=== PATIENT | female | born 1935 | race Caucasian/White ===

== ENCOUNTER 2017-03-02 09:21 | Emergency (ER) | payer OTHER, MEDICARE ==
[~2017-03-02] VITALS: Ht 154.9 cm; Wt 80.2 kg
[2017-03-02] MEDS ORDERED: METOPROLOL SUCC50 MG PO (09:46)
[2017-03-02] MEDS ORDERED: ALDACTONE25 MG PO (09:46)
[2017-03-02] MEDS ORDERED: HYDROCHLOROTHIA25 MG PO (09:47)
[2017-03-02] MEDS ORDERED: ARIMIDEX1 MG PO (09:47)
[2017-03-02] MEDS ORDERED: KLOR-CON SPRIN10 MEQ PO (09:48)
[2017-03-02 10:03] LABS: EOSINOPHIL (%) 0.9 % (0-5); EOSINOPHIL COUNT 0.1 K/uL (0-0.3); IMMATURE GRANULOCYTE (%) 0.4 % (0.0-0.7); IMMATURE GRANULOCYTE COUNT 0.1 K/uL; LYMPHOCYTE COUNT 1.8 K/uL (1.0-2.8); MCH 30.3 PG (29.0-34.0); MCHC 32.6 G/DL (30.0-36.0); MCV 92.9 FL (83-99); MEAN PLAT.VOLUME 10.7 uM^3 (9.5-12.4); MONOCYTE (%) 5.2 % (3-12); MONOCYTE COUNT 0.7 K/uL (0-0.8); NEUTROPHIL (%) 79.3 % (45-76); PLATELET COUNT 228 K/uL (156-360); RBC DIS.WIDTH-SD 44.1 % (39-53); RED BLOOD COUNT 3.66 M/uL (3.80-5.20); WHITE BLOOD COUNT 12.6 K/uL (4.1-10.2)
[2017-03-02 10:13] LABS: CHLORIDE 109 mEq/L (99-109); POTASSIUM 5.3 mEq/L (3.7-5.4); SODIUM 139 mEq/L (136-147)
[2017-03-02 10:14] LABS: GLUCOSE 167 mg/dL (70-99)
[2017-03-02 10:16] LABS: ANION GAP 10 MEQ/L (2-14)
[2017-03-02 10:18] LABS: GFR ESTIMATE (CALCULATED) 15 mL/min/
[2017-03-02 10:19] LABS: UREA NITROGEN (BUN) 52 mg/dL (9-23)
[2017-03-02 11:53] VITALS: BP 129/84
== END 2017-03-02 11:58 | disposition home or self-care (01) ==
LOC: EME 09:21
PROVIDERS: Emergency Medicine
DX: S00.03XA Contusion of scalp, initial encounter (principal); I12.9 Hypertensive chronic kidney disease with stage 1 through stage 4 chronic kidney disease, or unspecified chronic kidney disease; N18.4 Chronic kidney disease, stage 4 (severe); W01.0XXA Fall on same level from slipping, tripping and stumbling without subsequent striking against object, initial encounter
CPT/HCPCS: 70450; 80048; 85025; 93005; 99281; 99284